=== PATIENT | female | born 1975 | race Caucasian/White ===

== ENCOUNTER 2017-02-21 20:50 | Emergency (ER) | payer MEDICAID | END 2017-02-21 22:34 | disposition home or self-care (01) | LOC: D.ER 20:50 | DX: J20.9 Acute bronchitis, unspecified (principal) ==

== ENCOUNTER 2018-05-18 14:10 | Emergency (ER) | payer MEDICAID ==
[~2018-05-18] VITALS: Ht 154.9 cm; Wt 90.9 kg
[2018-05-18 14:27] VITALS: Ht 154.9 cm; Wt 90.9 kg
[2018-05-18] MEDS ORDERED: KLONOPIN1 MG PO (14:29)
[2018-05-18] MEDS ORDERED: REXULTI1 MG PO (14:29)
[2018-05-18] MEDS ORDERED: LEXAPRO20 MG PO (14:30)
[2018-05-18] MEDS ORDERED: NEURONTIN600 MG PO (14:30)
[2018-05-18] MEDS ORDERED: ZETIA10 MG PO (14:30)
[2018-05-18] MEDS ORDERED: BACLOFEN10 MG PO (14:30)
[2018-05-18 15:12] LABS: HEMATOCRIT 44.6 % (36.0-48.0); HEMOGLOBIN 15.4 g/dL (12-16); LYMPHOCYTES 37.3 % (15-50); MCH 32.5 pg (26.0-34.0); MCHC 34.5 g/dL (31.0-37.0); MCV 94.1 fL (80.0-100.0); MEAN PLATELET VOLUME 9.1 fL (7.4-10.4); NEUTROPHILS 53.8 % (40-80); PLATELET COUNT 275 10x3/uL (130-400); RBC 4.74 10x6/uL (4.00-5.40); RDW 13.9 % (11.5-14.5); WBC 9.8 10x3/uL (4.8-10.8)
[2018-05-18 15:33] LABS: ALBUMIN 3.9 g/dL (3.4-5.0); ALKALINE PHOSPHATASE 94 U/L (46-116); ALT (SGPT) 100 U/L (10-68); AMYLASE - SERUM 44 U/L (25-115); BILIRUBIN - TOTAL 0.44 mg/dL (0.2-1.3); CALC OSMOLALITY 275 mosm/kg (275-300); CALCIUM 9.2 mg/dL (8.5-10.1); CARBON DIOXIDE 27.1 mmol/L (21.0-32.0); CHLORIDE - SERUM 102 mmol/L (98-107); CREATININE - SERUM 0.8 mg/dL (0.6-1.3); GLUCOSE 105 mg/dL (74-106); LIPASE 102 U/L (73-393); POTASSIUM - SERUM 3.5 mmol/L (3.5-5.1); SODIUM 139 mmol/L (136-145); UREA NITROGEN 6 mg/dL (7-18); eGFR NON AFRICAN AMERICAN 84 mL/min (90-120)
[2018-05-18 15:50] LABS: APPEARANCE CLEAR (CLEAR); COLOR YELLOW (YELLOW)
[2018-05-18 15:51] LABS: BILIRUBIN NEGATIVE (NEGATIVE); EPITHELIAL CELLS 0-5 /hpf (0-5); GLUCOSE NEGATIVE (NEGATIVE); KETONE NEGATIVE (NEGATIVE); NITRITE NEGATIVE (NEGATIVE); PROTEIN NEGATIVE (NEGATIVE); RED CELLS - URINE OCC /hpf (0-5); SPECIFIC GRAVITY 1.015 (1.005-1.020); UROBILINOGEN NORMAL (NORMAL); WHITE CELLS - URINE 0-5 /hpf (0-5)
[2018-05-18] MEDS ORDERED: LIBRIUM5 MG PO (19:32)
[2018-05-18 20:13] VITALS: BP 180/98
== END 2018-05-18 22:27 | disposition home or self-care (01) ==
LOC: D.ER 14:10
PROVIDERS: Family Medicine
DX: R10.9 Unspecified abdominal pain (principal); F17.200 Nicotine dependence, unspecified, uncomplicated

== ENCOUNTER 2019-07-03 08:56 | Outpatient (CLI) | payer MEDICAID ==
[~2019-07-03] VITALS: Ht 152.4 cm; Wt 86.4 kg
--- NOTE | ~2019-07-03 | HEMODYNAMI ---
PATIENT:CHELA VARGAS MEDICAL RECORD: [id number] : 77 LOCATION:[facility] ADMISSION DATE: 07/03/19 Generatedon:07/04/201913:54 Patient name: CHELA VARGAS Patient #: [id number] : 1975 Date of study: 07/03/2019 Page: Of Hemodynamic Procedure Report Patient Data Patient Demographics Procedure consent was obtained First Name: CHELA Gender: Female Last Name: SAM : 1975 Middle Initial: R Age: 43 year(s) Patient #: [id number] Race: SSN: [id number] Additional ID: [id number] Contact details [address]: [address] [place] [address] [address] State: [place] City: [place] Zip code: [address] Admission Admission Data Admission Date: 07/03/2019 Admission Time: 8:56 Arrival Date: 07/03/2019 Arrival Time: 11:00 Admit Source: Other Insurance Payor: Medicaid [facility] #: [id number] Height (in.): 59.84 BSA: 1.82 (m2) Height (cm.): 152 BMI: 37.22 (kg/m2) Weight (lbs.): 189.6 Weight (kg.): 86 Lab Results Lab Result Date: 07/03/2019 Lab Result Time: 0:00 Biochemistry Name Units Result Min Max BUN mg/dl 7 --(*---)-- 7 18 Creatinine mg/dl 0.7 --(*---)-- 0.6 1.3 eGFR ml/min 90 --(*---)-- 90 120 NONAFRICAN CBC Name Units Result Min Max Hemoglobin g/dl 15.4 --(-*--)-- 13.5 17.5 Procedure Procedure Types Cath Procedure Diagnostic Procedure [facility] LH w/Coronaries Sedation Charges Moderate Sedation up to 15 minutes Procedure Description Procedure Date Procedure Date: 07/03/2019 Procedure Start Time: 11:12 Procedure End Time: 11:19 Procedure Staff Name Function Sada Barry RT Monitor Bailey Mao RN Nurse Gomez Wallace MD Performing Physician Kyra Morrow RT Scrub Procedure Data Cath Procedure Fluoroscopy Diagnostic fluoroscopy Total fluoroscopy Time: 0.9 time: 0.9 min min Diagnostic fluoroscopy Total fluoroscopy dose: dose: 90.66 mGy 90.66 mGy Contrast Material Contrast Material Type Amount (ml) Isovue 300 39 Entry Location Entry Primary Successful Side Size Upsize Upsize Entry Closure Puente ccessful Closure Location (Fr) 1 (Fr) 2 (Fr) Remarks Device Remarks Radial Right 6 Fr Mechanical artery Short Compression Estimated blood loss: 5 ml Diagnostic catheters Device Type Used For End Catheter Placement DIAGNOSTIC [place] 110cm 5 Multi-vessel Fr catheter ([id number]) Angiography Procedure Complications No complications Procedure Medications Medication Administration Route Dosage Oxygen etCO2 Nasal cannula 2 l/min Lidocaine 2% added to field 20 Heparin Flush Bag added to field 2 bags (1000units/500ml NS) 0.9% NaCl I.V. 100 ml/hr Radial Cocktail I.A. 1 syringe (Verapamil 2mg/Nitro 400mcg/Heparin 1500units) Versed I.V. 2 mg Fentanyl I.V. 100 mcg Versed I.V. 2 mg Fentanyl I.V. 50 mcg Versed I.V. 2 mg Fentanyl I.V. 50 mcg Versed I.V. 2 mg Hemodynamics Rest HGB: 15.4 (g/dl) Heart Rate: 17 (bpm) Pressure Samples Time Site Value (mmHg) Purpose Heart Use Rate(bpm) 11:15 LV 53/-9,10 Snapshot 130 Snapshots Pre Cath Intra NCS Post Cath Vital Signs Time Heart Resp SPO2 etCO2 NIBP (mmHg) Rhythm Pain Sedation Rate (ipm) (%) (mmHg) Status Level (bpm) 10:39:42 90 19 93 0 No Cuff NSR (Missing) 10(A) 10:43:54 68 24 94 0 134/90(117) NSR (Missing) 10(A) 10:48:10 68 16 94 0 127/80(103) NSR (Missing) 10(A) 10:52:22 66 19 94 32.8 125/84(99) NSR (Missing) 10(A) 10:56:30 67 14 94 44.8 122/86(96) NSR (Missing) 10(A) 11:01:35 66 16 93 41.1 124/83(99) NSR (Missing) 10(A) 11:05:51 62 26 94 33.6 127/69(85) NSR (Missing) 10(A) 11:10:48 67 15 94 39.6 119/81(99) NSR (Missing) 10(A) 11:15:06 121 15 95 41.1 113/58(95) NSR (Missing) 10(A) 11:20:07 71 13 95 37.3 103/63(78) NSR (Missing) 10(A) Medications Time Medication Route Dose Verified Delivered Reason Notes Effectiveness by by 10:40:29 Oxygen etCO2 2 l/min Gomez Avalos used for Nasal Rodrigo Mao RN procedure cannula 10:40:36 Lidocaine 2% added 20ml Gomez Dyer for local to vial Rodrigo Wallace MD anesthetic field 10:40:43 Heparin Flush added 2 bags Gomez Dyer used for Bag to Rodrigo Wallace MD procedure (1000units/500ml field NS) 10:40:53 0.9% NaCl I.V. 100 Gomez Avalos Per ml/hr Rodrigo Mao RN physician 11:04:09 Versed I.V. 2 mg Gomez Avalos for sedation Rodrigo Mao RN 11:04:15 Fentanyl I.V. 100 mcg Gomez Avalos for sedation Rodrigo Mao RN 11:08:19 Versed I.V. 2 mg Gomez Avalos for sedation Rodrigo Mao RN 11:08:23 Fentanyl I.V. 50 mcg Gomez Avalos for sedation Rodrigo Mao RN 11:12:43 Versed I.V. 2 mg Gomez Avalos for sedation Rodrigo Mao RN 11:12:47 Fentanyl I.V. 50 mcg Gomez Avalos for sedation Rodrigo Mao RN 11:14:01 Radial Cocktail I.A. 1 Gomez yDer for (Verapamil syringe Rodrigo Wallace MD vasodilation 2mg/Nitro 400mcg/Hepari 11:15:22 Versed I.V. 2 mg Gomez Avalos for sedation Rodrigo Mao RN Procedure Log Time Note 10:25:04 Bailey Mao RN sent for patient. Start room use. 10:32:50 Informed consent obtained and on chart 10:34:40 Diagnostic Cath Status : Elective 10:35:05 Time tracking: Regular hours (M-F 7:00 - 5:00) 10:35:08 Plan of Care:Hemodynamics will remain stable., Cardiac rhythm will remain stable., Comfort level will be maintained., Respiratory function will remain adequate., Patient/ family verbilizes understanding of procedure., Procedure tolerated without complication., Recovers from procedure without complications.. 10:35:28 Patient received from Pre/Post Procedure Room to CCL 3 Alert and oriented. Tansferred to table in Supine position. 10:35:30 Correct patient and procedure confirmed by team. 10:35:30 Warm blankets applied, and trang hugger turned on for patient comfort. 10:35:31 ECG and BP/O2 sat monitors applied to patient. 10:37:38 Admit Source: Other 10:37:40 Arrival Date: 07/03/2019 11:00:00 AM 10:37:59 Insurance Payor : Medicaid 10:38:10 Patient Height : 59.84 inches 10:38:14 Patient Weight : 189.6 lbs 10:38:50 Lab Result : eGFR NONAFRICAN 90 ml/min 10:38:50 Lab Result : Hemoglobin 15.4 g/dl 10:38:50 Lab Result : BUN 7 mg/dl 10:38:50 Lab Result : Creatinine 0.7 mg/dl 10:38:53 Vital chart was started 10:39:41 Baseline sample Acquired. 10:39:57 Rhythm: sinus rhythm 10:39:59 Full Disclosure recording started 10:40:04 H&P Date Dictated: 07/03/2019 Within 30 days and on chart., H&P Addendum completed by physician on day of procedure. (MUST COMPLETE FOR ALL OUTPATIENTS). 10:40:06 Pre-op teaching completed and patient verbalized understanding. 10:40:06 Pre-procedure instructions explained to patient. 10:40:08 Family in patients room. 10:40:11 Patient NPO since Midnight. 10:40:12 Is the patient allergic to Iodine/contrast media? No. 10:40:13 Was the patient premedicated? Yes 10:40:14 Is patient on blood thinner?No 10:40:16 Patient diabetic? No. 10:40:24 Patient not . Patient has had tubal. 10:40:29 Oxygen 2 l/min etCO2 Nasal cannula was administered by Bailey Mao RN; used for procedure; Verbal order read back and verified. 10:40:36 Lidocaine 2% 20ml vial added to field was administered by Gomez Wallace MD; for local anesthetic; Verbal order read back and verified. 10:40:42 Previous problem with sedation/anesthesia? No ? 10:40:43 Heparin Flush Bag (1000units/500ml NS) 2 bags added to field was administered by Gomez Wallace MD; used for procedure; Verbal order read back and verified. 10:40:44 Snore? Yes 10:40:53 0.9% NaCl 100 ml/hr I.V. was administered by Bailey Mao RN; Per physician; Verbal order read back and verified. 10:40:59 Sleep apnea? No 10:41:00 Deviated septum? No 10:41:01 Sticks out tongue? Yes 10:41:01 Opens mouth fully? Yes 10:41:12 Airway obstruction? No ? 10:41:15 Dentures? No ? 10:41:24 Pre procedure: right dorsailis pedis pulse 2+ Normal; easily identifiable; not easily obliterated 10:41:29 Patient pain scale 0/10 ?. 10:41:36 IV patent on arrival in left forearm with 0.9% NaCl at [facility]. 10:41:39 Lab results completed and on chart. 10:42:06 Stress Test: yes; abnormal anterolateral 10:46:15 Risk of Mortality: 0.8 10:46:24 Risk of blood transfusion: 1.2 10:46:27 Risk of REBECA: 1.2 10:46:36 Right Radial & Right Groin area was prepped with chlora-prep and draped in sterile fashion 10:46:37 Sharps counted by scrub and verified by R.N. 10:46:37 Alarms reviewed by R. N. 10:55:35 Baseline sample Acquired. 10:57:45 Zero performed for pressure channel P1 11:03:32 --------ALL STOP TIME OUT------ 11:03:32 Physician arrived 11:03:34 Final Timeout: patient, procedure, and site verified with staff and physician. All members of the team are in agreement. 11:03:50 Right Radial & Right Groin site verified by team. 11:03:55 Fire Safety Assessment: A--An alcohol-based skin anteseptic being used preoperatively., C--Open oxygen or nitrous oxide is being used., D--An ESU, laser, or fiber-optic light is being used. 11:03:58 Physical assessment completed. ASA score P 2 - A patient with mild systemic disease as per Gomez Wallace MD. 11:04:08 1) 90+ Normal kidney functon but urine findings or structural abnormalities or genetic trait point to kidney disease. 11:04:09 Versed 2 mg I.V. was administered by Bailey Mao RN; for sedation; Verbal order read back and verified. 11:04:11 Maximum allowable contrast dose (3.7 X eGFR X 0.75)249 ml. 11:04:15 Fentanyl 100 mcg I.V. was administered by Bailey Mao RN; for sedation; Verbal order read back and verified. 11:04:16 Sedation plan: IV Moderate Sedation Medication:Versed, Fentanyl 11:05:04 Use device set Radial Dx or PCI 11:05:05 Medline Cath Pack ([id number]) opened to sterile field. 11:05:05 ACIST Syringe (93492) opened to sterile field. 11:05:06 ACIST Manifold (26869) opened to sterile field. 11:05:06 ACIST Hand Control (07349) opened to sterile field. 11:05:06 Bag Decanter (2001S) opened to sterile field. 11:05:07 Tegaderm 4 x 4 (1626W) opened to sterile field. 11:05:08 MBrace Wrist Support ([id number]) opened to sterile field. 11:05:09 EMERALD Guide Wire (853-987) opened to sterile field. 11:05:10 SHEATH 6FR RAIN (9068037) opened to sterile field. 11:08:19 Versed 2 mg I.V. was administered by Bailey Mao RN; for sedation; Verbal order read back and verified. 11:08:23 Fentanyl 50 mcg I.V. was administered by Bailey Mao RN; for sedation; Verbal order read back and verified. 11:10:59 Procedure started. 11:12:08 Local anesthetic to right radial artery with Lidocaine 2% by Gomez Wallace MD.INITIAL ACCESS ONLY 11:12:18 A 6 Fr Short sheath was inserted into the Right Radial artery 11:12:43 Versed 2 mg I.V. was administered by Bailey Mao RN; for sedation; Verbal order read back and verified. 11:12:47 Fentanyl 50 mcg I.V. was administered by Bailey Mao RN; for sedation; Verbal order read back and verified. 11:13:21 A DIAGNOSTIC [place] 110cm 5 Fr catheter (952838) was advanced over the wire and used for Multi-vessel Angiography. 11:14:01 Radial Cocktail (Verapamil 2mg/Nitro 400mcg/Heparin 1500units) 1 syringe I.A. was administered by Gomez Wallace MD; for vasodilation; Verbal order read back and verified. 11:15:04 LV hemodynamics recorded. 11:15:05 LV gram done using SELLERS 11:15:09 Injector settings: Ml/sec: 5, Volume: 15, 11:15:15 EF : 60 % 11:15:22 Versed 2 mg I.V. was administered by Bailey Mao RN; for sedation; Verbal order read back and verified. 11:15:37 LCA angiography performed. 11:15:41 Injector settings: Ml/sec: 3, Volume: 6, 11:16:17 LV angiography performed. 11:16:22 Injector settings: Ml/sec: 3, Volume: 6, 11:16:28 Catheter removed. 11:16:46 ZEPHYR REGULAR TR BAND (672623) opened to sterile field. 11:16:59 Sheath removed intact; hemostasis achieved with Mechanical Compression to the Right Radial artery. 11:17:01 Procedure ended.(Physican Out) 11:17:17 Fluoroscopy time 00.90 minutes. 11:17:21 Fluoroscopy dose: 90.66 mGy 11:17:21 Flurop Dose total: 90.66 11:17:28 Dose Area Product 712 mGy/cm. 11:17:32 Contrast amount:Isovue 300 39ml. 11:17:43 Maximum allowable dose exceeded? No. 11:17:44 Sharps counted by scrub and verified by R.N. 11:18:07 [place] band inflated with 10cc of air. 11:18:08 Insertion/operative site no bleeding no hematoma. 11:18:12 Post right radial artery:stable 11:18:14 Post Procedure Pulses reassessed and unchanged 11:18:16 Post procedure rhythm: unchanged. 11:18:18 Estimated blood loss: 5 ml 11:18:20 Patient needs reinforcement of post procedure teaching. 11:18:20 Post procedure instruction explained to patient.Patient verbalizes understanding. 11:18:33 Procedure type changed to Cath procedure, Diagnostic procedure, LHC, LHC w/Coronaries, Sedation Charges, Moderate Sedation up to 15 minutes 11:18:34 Procedure and supply charges have been captured, reviewed, submitted and are correct. 11:18:39 Procedure Complication : No complications 11:18:43 [facility] Findings: mild to moderate CAD (<70%) 11:18:46 See physician's report for complete and final results. 11:18:46 Operative report dictated upon procedure completion. 11:18:47 Report given to Pre/Post Procedure Room. 11:18:58 Patient transfered to Pre/Post Procedure Room with Stretcher. 11:19:02 Full Disclosure recording stopped 11:19:02 Procedure ended. 11:19:07 End room use (Document Last) 11:21:47 Vital chart was stopped 13:53:21 Late entry; 07/03/19 @11:16:17 RCA anigiography performed; Not LV. Device Usage Item Name Manufacture Quantity Catalog Hospital Part Current Minima l Lot# / Number Charge Number Stock Stock Serial# Code ACIST Acist 1 12753 [id number] 20 Syringe Medical (26389) Systems Inc Medline Medline 1 [id number] 595191 81000 147147 5 Cath Pack ([id number]) Bag Microtek 1 748896 63759 704886 5 Decanter Medical Inc. () ACIST Hand Acist 1 47050 126098 595785 837355 5 Control Medical (68561) Systems Inc ACIST Acist 1 56644 734819 164135 921598 5 Manifold Medical (26050) Systems Inc Tegaderm 4 3M 1 1626W 574709 089850 071665 5 x 4 (1626W) MBrace Advanced 1 [id number] 307005 14286 630069 5 Wrist Vascular Support Dynamics ([id number]) EMERALD Cardinal 1 831-203 756291 122008 114340 5 Guide Wire [facility] (589-740) SHEATH 6FR Cardinal 1 [id number] 866931 8281857 237206 5 [facility] Health (8623450) DIAGNOSTIC Terumo 1 40-2387 877627 513788 868666 5 [place] 110cm 5 Fr catheter (247338) ZEPHYR Cardinal 1 588466 800173 0270794 278050 5 REGULAR TR Health BAND (238395) Signature Audit [place] Stage Time Signature Unsigned Intra-Procedure 07/03/2019 Sada Barry 11:20:37 AM RT(R) Intra-Procedure 07/03/2019 Bailey Mao RN 11:21:06 AM Intra-Procedure 07/03/2019 Gomez Wallace MD 11:21:45 AM 07/04/2019 1:52:09 PM Intra-Procedure 07/04/2019 Gomez Wallace 1:54:12 PM Intra-Procedure 07/04/2019 Gomez Wallace 1:54:55 PM [id number] [place] [address]
[2019-07-03 09:45] LABS: BASOPHILS 0.5 % (0-2); HEMATOCRIT 43.9 % (36.0-48.0); HEMOGLOBIN 15.4 g/dL (12-16); IMMATURE GRANULOCYTES 0.1 % (0-5); LYMPHOCYTES 33.2 % (15-50); MCH 33.6 pg (26.0-34.0); MCHC 35.1 g/dL (31.0-37.0); MCV 95.9 fL (80.0-100.0); MEAN PLATELET VOLUME 9.4 fL (7.4-10.4); NEUTROPHILS 56.2 % (40-80); PLATELET COUNT 217 10x3/uL (130-400); RBC 4.58 10x6/uL (4.00-5.40); RDW 13.3 % (11.5-14.5); WBC 9.7 10x3/uL (4.8-10.8)
[2019-07-03 09:54] VITALS: BP 139/93; Ht 152.4 cm; Wt 86.4 kg
[2019-07-03 10:03] LABS: ALT (SGPT) 32 U/L (10-68); CALC OSMOLALITY 279 mosm/kg (275-300); CALCIUM 8.8 mg/dL (8.5-10.1); CARBON DIOXIDE 31.6 mmol/L (21.0-32.0); CHLORIDE - SERUM 103 mmol/L (98-107); CHOLESTEROL, TOTAL 139 mg/dL (0-200); CREATININE - SERUM 0.7 mg/dL (0.6-1.3); GLUCOSE 108 mg/dL (74-106); HDL CHOLESTEROL 35 mg/dL (32-96); LDL CHOLESTEROL 71 mg/dL (0-100); POTASSIUM - SERUM 3.6 mmol/L (3.5-5.1); SODIUM 141 mmol/L (136-145); TRIGLYCERIDE 167 mg/dL (30-200); UREA NITROGEN 7 mg/dL (7-18); eGFR NON AFRICAN AMERICAN > 90 mL/min (90-120)
--- NOTE | 2019-07-03 11:30 | NUR ---
REC'D TO ROOM 8 VIA STRETCHER, S/P SKEIN YARN DYER. MONITORS ESTAB. SEE ORDER ENTRY REPRESENTATIVE. ALARMS ON AND C/L IN REACH.
--- NOTE | 2019-07-03 11:45 | NUR ---
R WRIST SITE C/D/I, NO S/S BLEEDING OR HEMATOMA. PT UP IN BED, VSS. GIVEN COLA PER REQUEST. AT BS. C/L IN REACH.
--- NOTE | 2019-07-03 12:15 | NUR ---
R WRIST SITE C/D/I, VSS. PT DENIES PAIN OR NEEDS. REMAINS AT BS.
--- NOTE | 2019-07-03 12:30 | NUR ---
5 CC AIR REMOVED FROM Z BAND, R WRIST SITE C/D/I.
--- NOTE | 2019-07-03 12:48 | NUR ---
DR. PRESLEY IN TO SEE PT, UPDATE GIVEN AND QUESTIONS ANSWERED.
--- NOTE | 2019-07-03 12:59 | NUR ---
ALL AIR REMOVED FROM Z BAND, NO S/S BLEEDING OR SWELLING. VSS.
--- NOTE | 2019-07-03 13:17 | NUR ---
R WRIST SITE C/D/I. NO S/S BLEEDING OR HEMATOMA. PIV D/C'D INTACT. PT ALLOWED UP TO GET DRESSED, ASSISTING.
--- NOTE | 2019-07-03 13:30 | NUR ---
PT UP TO BR INDEPENDENTLY. D/C'D VIA WC TO PRIVATE VEHICLE WITH ALL BELONGINGS AND PAPERWORK.
--- NOTE | 2019-07-05 16:48 | OP ---
PATIENT NAME: CHELA VARGAS MEDICAL RECORD: [id number] :[birth year] LOCATION:[facility] ADMISSION DATE: SURGEON: JENNIFER PRESLEY MD DATE OF OPERATION: 07/03/2019 PROCEDURES: 1. Left heart catheterization. 2. Selective coronary angiography. 3. Left ventriculogram. INDICATION: Chest pain compatible with angina and abnormal nuclear stress test. DESCRIPTION OF PROCEDURE: After informed consent was obtained and after a detailed description of risks, benefits as well as alternative therapies, the patient elected to proceed with angiogram and heart catheterization. The right radial area was prepped and draped in normal sterile fashion. Right radial artery was cannulated via modified Seldinger technique with placement of 6-Slovak sheath. All catheters exchanged through this sheath. FINDINGS: Left ventriculogram performed in standard 30-degree SELLERS view, reveals good cardiac wall motion, ejection fraction estimated at 65%. SELECTIVE CORONARY ANGIOGRAPHY: Left main, left anterior descending, and, left circumflex, right coronary artery are all smooth-walled vessels with no angiographic evidence of coronary artery disease. OVERALL IMPRESSION: 1. No angiographic evidence of coronary artery disease. 2. Normal left heart pressures. 3. Normal left ventricular systolic function. Chest pain is noncardiac in etiology. No further cardiac workup needs to be ascertained. TRANSINT:[id number] Voice Confirmation ID: [id number] DOCUMENT ID: [id number] JENNIFER PRESLEY MD at 1648 CC: [id number] DICTATION DATE: 07/03/19 1120 [place] WINDER: 07/03/19 1329 DEP CLI 07/03/19 [place] [id number] [place] [id number]
== END 2019-07-03 13:30 | disposition home or self-care (01) ==
LOC: D.CATH 08:56
PROVIDERS: ATTEND Internal Medicine Interventional Cardiology
DX: R07.9 Chest pain, unspecified (principal); R94.39 Abnormal result of other cardiovascular function study; I10 Essential (primary) hypertension; E78.5 Hyperlipidemia, unspecified; Z82.49 Family history of ischemic heart disease and other diseases of the circulatory system; Z87.891 Personal history of nicotine dependence